=== PATIENT | female | born 2000 | race Caucasian/White ===

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

== ENCOUNTER 2022-06-07 06:46 | Day surgery (SDC) | payer MEDICAID, SELFPAY ==
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
[2022-06-07] VITALS (7 sets, daily range): BP systolic 97–121; BP diastolic 57–90; PULSE 76–97; RESP 16–18; TEMP 36.5–37.1; O2SAT 96–100; BMI 27.7
[2022-06-07 07:22] LABS: Internal QC Validated? YES +Cl - CLEAR BKGD; Pregnancy, Urine Negative Negative
[2022-06-07] MEDS: Lactated Ringers 1,000 ML 15 ML IV (07:26)
[2022-06-07 07:30] LABS: Hematocrit 42.2 % (37-47); Mean Corp Hgb Conc 33.2 g/dL (32-36); Mean Corpuscular Hgb 29.4 pg (27.0-32.0); Mean Corpuscular Volume 88.7 fL (81-99); Mean Platelet Vol. 9.6 fl (6.2-12.0); Platelet Count 413 K/mm3 (150-450); RBC Distribution Width CV 12.3 % (11.6-14.6); RBC Distribution Width SD 40.1 fl (35.1-43.9); Red Blood Count 4.76 M/mm3 (4.2-5.4); White Blood Count 8.7 K/mm3 (4.4-11.0)
--- NOTE | 2022-06-07 08:19 | OP.PCM_ITS ---
Report of Operation Date of Procedure: 06/07/22 Pre-Operative Diagnosis: left labial hypertrophy Post-Operative Diagnosis: same Surgery/Procedure Performed:: left labiaplasty Description of Surgical Findings:: left labia minora larger then right Surgeon: Charley Damico Type of Anesthesia: Local and MAC Special Medications: 2% lidocaine with epinephrine Specimen's removed: left labia minora Drains: none Estimated Blood Loss (mL): 10cc Fluids Replaced: 500 Description of Procedure: Pt was taken to the OR where MAC anesthesia was administered. pt was then placed in the [facility] stirrups. she was then prepped in normal sterile fashion. Sterile drapes placed. At this time 2%lidocaine with epinephrine was injected on left labia minora. At this time left labia was marked. Allis clamps used to grasp tissue. Excess skin was then excised. The tissue will be sent to pathology for evualtion. at this time 3-0 rapide suture used to reapproximate left labia minora edges in a running subcutaneous fashion. Excellent hemostasis appreciated. Lap, needle and instrument count were correct x 2. Vaginal sweep negative. Grafts/Implants Used: none Procedure Start Time: 08:23 Procedure Stop Time: 08:40 Complications none Admit VTE Documentation VTE Present on Admission: Yes VTE Mechan Device Prophylaxis: SCD's VTE Pharm Prophylaxis ordered?: No Reason prophylaxis not ordered:: Procedure Not Indicated
[2022-06-07] MEDS: Lidocaine 2% /Epi 1:100 (20ml) 20 ML VIAL (08:28)
--- NOTE | 2022-06-07 08:30 | TISS_PTH ---
PATIENT: KURT MERCADO LOC: [facility] [place] U[place][id number] AGE/SX: 22/F ROOM: RE06/07/[address]: Dr. Charley Damico, MDDOB: 2000 BED: DIS: 06/07/2022 SPEC #: [id number] RECD: 06/07/22 10:15 STATUS: ADRIANE SAM #: [id number] FRANK: 06/07/22 08:[address]: Charley Damico DEPT: SURGICAL PATHOLOGY RECD BY: Nesha Tran ENTERED: 06/07/22 12:46 SP TYPE: Tissue Bx ASHLEY DR: Dr. Antonella Sanchez MD Tissues: Labial gland, NOS Procedures: Surgery Specimen Level III HEADER OPERATION: Labiaplasty PRE-OP DIAGNOSIS: Symptomatic labial hypertrophy TISSUE SUBMITTED: Left labia minora segment MICROSCOPIC DIAGNOSIS Labia minora segment, labiaplasty: A piece of skin with focal hyperkeratosis. MARTHA:alexia 06/08/2022 MICROSCOPIC DESCRIPTION Slides are reviewed. GROSS DESCRIPTION Received in fixative is one container labeled with the patient's name and designated left labia minora segment. The specimen consists of an elongated piece of payne-brown skin measuring 6.5 x 0.6 x 0.2 cm. No skin lesion is identified. Nurse Charge Rn sections are submitted in one cassette. / MARTHA:alexia 06/07/2022 TC:5 [facility]: [id number]
--- NOTE | 2022-06-07 08:48 | DCINST_ITS ---
Discharge Instructions Diet Discharge Diet: No restrictions Activity May resume sexual activity in: 4-6 weeks Weight Bearing Status: Weight bearing as tolerated Lifting Restrictions: 20 Dressing / Incision Call your doctor if your incision/area has: Increased Pain/ Swelling, Increased Redness, Foul Smelling Discharge and Swelling at the incision site Call your doctor if you observe: Fever of 101 or Higher and Using more than 1 pad per hour Cleanse incision/area with: Soap & Water Follow Up Care Test Results: Test results from this visit will be discussed in further detail at your follow- up appointment, if applicable. Discharge Plan Admission Attending Provider: Charley Damico Primary Care Provider: Antonella Sanchez Discharge Orders/Prescriptions Prescriptions: No Action lamotrigine 25 mg tablet 25 mg PO QHS Label Comments: TAKE 1 TABLET BY MOUTH ONCE DAILY FOR 14 DAYS, THEN INCREASE TO 2 TABLETS DAILY gabapentin 100 mg capsule 100 mg PO QHS Label Comments: TAKE 1-3 CAPSULES BY MOUTH DAILY TOLERATED Referrals / Follow Up: Antonella Sanchez MD [Primary Care Provider] -
== END 2022-06-07 10:47 | disposition home or self-care (01) ==
LOC: SDC 06:48 → AC 06:50
PROVIDERS: PCP Family Medicine; Referring Provider Obstetrics & Gynecology; Visit Provider Obstetrics & Gynecology
PROC: (CPT 56620; principal; 2022-06-07 08:20)
DX: N90.69 Other specified hypertrophy of vulva (principal); F31.81 Bipolar II disorder
CPT/HCPCS: 56800; 88305; 81025; 85027; 88304; J7120; J2405

== ENCOUNTER 2023-12-01 22:57 | Emergency (ER) | payer MEDICAID, SELFPAY ==
[2023-12-01 22:57] VITALS: BP 132/114; PULSE 100; RESP 18; TEMP 36.1; O2SAT 99; BMI 30.4
--- NOTE | 2023-12-01 23:11 | EX.ED.VIS.UR ---
HPI HPI - URI History of Present Illness Chief Complaint: Ear Problem Informant: patient and parent Onset/Context/Timing Onset: Hours (3) Context: Gradual Onset Timing: Continuous Quality: ache Location: L ear Current Severity: Severe Maximum Severity: Severe Narrative Narrative: Patient has had an earache for several hours now. Left ear, with difficulty hearing out of it, no otorrhea, fevers, chills. Pain is radiating into the left side of her face. No nasal congestion, allergies, or recent illness of any other sort. No recent injury. No recent swimming. ROS ROS ED Constitutional Constitutional ED: Denies chills or fever(s) ENT ENT ED: Reports as per HPI and ear pain left; Denies headache(s), nasal congestion, rhinorrhea or sore throat Cardiovascular Cardiovascular: Denies chest pain Respiratory/Chest Respiratory/Chest: Denies dyspnea Gastrointestinal Gastrointestinal: Denies nausea or vomiting Musculoskeletal Musculoskeletal: Denies back pain or neck pain Integumentary Denies rash PFSH PFSH Medical History Wears glasses Former smoker Shortness of breath on exertion Anxiety Depression Home Medications ?Medication ?Instructions ?Recorded ?Last Taken ?Type gabapentin 100 mg capsule 100 mg PO QHS 05/31/22 Unknown History lamotrigine 25 mg tablet 25 mg PO QHS 05/31/22 Unknown History amoxicillin 875 mg-potassium 875 mg PO Q12H #20 TABLETS 12/01/23 Unknown Rx clavulanate 125 mg tablet Allergy/AdvReac Type Severity Reaction Status Date / Time gentamicin Allergy Rash Verified 12/01/23 22:58 Social History Smoking Status: Former smoker EXAM Physical Exam Const Vital Signs: 12/01/23 22:57 Temperature 96.9 F L Temperature Source Temporal Pulse Rate 100 Respiratory Rate 18 Blood Pressure 132/114 H Blood Pressure Mean 120 Pulse Ox 99 Oxygen Delivery Method Room Air Positive well nourished and well developed General Appearance ED: well developed and NAD HEENT Reports moist mucous membranes HEENT Narrative: No sinus tenderness. Right TM and EAC normal. Left EAC unremarkable, otoscopic examination is nontender, the left tympanic membrane is significantly erythematous and bulging with loss of light reflex. No perforation or otorrhea. No significant discomfort with manipulation of the tragus of the pinna. No Rg sign or swelling in the mastoid process no tenderness there. Eyes PERRL and EOMs intact bilaterally Neck no lymphadenopathy and supple Resp normal respiratory effort Neuro oriented x3, CN's II-XII intact bilaterally and gait normal Psych Psych Narrative: Anxious in pain otherwise normal MDM MDM MDM Narrative Medical decision making narrative: Consistent with a left otitis media. Etiology is unclear. Will have her follow-up. Given Naprosyn and tramadol for the pain here as well as starting her on Augmentin. Discharge Plan Triage Chief Complaint: Ear Problem Other Complaint: Lower Extremity Injury ED Provider: Kevin Urias Dx/Rx/DC Orders Clinical Impression: Acute left otitis media Instructions: ED Otitis Media Adult Prescriptions: New amoxicillin-pot clavulanate 875-125 mg tablet 875 mg PO Q12H Qty: 20 0RF No Action lamotrigine 25 mg tablet 25 mg PO QHS Patient Comments: TAKE 1 TABLET BY MOUTH ONCE DAILY FOR 14 DAYS, THEN INCREASE TO 2 TABLETS DAILY gabapentin 100 mg capsule 100 mg PO QHS Patient Comments: TAKE 1-3 CAPSULES BY MOUTH DAILY TOLERATED Primary Care Provider: Antonella Sanchez Referrals: Antonella Sanchez MD [Primary Care Provider] - 1-2 Weeks Print Language: Maldivian Disposition Disposition: Home, Self Care
[2023-12-01 23:17] VITALS: BP 136/86; PULSE 90; RESP 16; TEMP 36.8; O2SAT 99
[2023-12-01] MEDS: Amox/Clavulanate 875 MG Tablet PO (23:20)
[2023-12-01] MEDS: Naproxen 500 MG Tablet PO (23:20)
[2023-12-01] MEDS: traMADol 50 MG Tablet PO (23:20)
== END 2023-12-01 23:58 | disposition home or self-care (01) ==
LOC: ED 23:19
PROVIDERS: Emergency Provider Emergency Medicine; PCP Family Medicine; Visit Provider Emergency Medicine
DX: H66.92 Otitis media, unspecified, left ear (principal); Z87.891 Personal history of nicotine dependence; R51.9 Headache, unspecified
CPT/HCPCS: 99284

== ENCOUNTER 2024-03-12 16:13 | Emergency (ER) | payer MEDICAID, SELFPAY ==
[2024-03-12 16:13] VITALS: BP 123/97; PULSE 106; RESP 14; TEMP 36.6; O2SAT 96; BMI 31.7
--- NOTE | 2024-03-12 16:48 | RAD_ITS ---
INDICATION: dog bite EXAMINATION/TECHNIQUE: X-RAY - LEFT XR Hand Min 3 Views 3 VIEWS COMPARISON: FINDINGS: SOFT TISSUES: There is soft tissue injury with mild subcutaneous gas. No radiopaque foreign body. BONES/JOINTS: No acute fracture or subluxation.. Normal alignment. Preservation of the joint space.. No sclerotic or destructive changes observed. RAD/Hand Min 3 Views IMPRESSION: No acute bony injury. Electronically Signed: Gus Gomez DO at 17:19 EDT ,
--- NOTE | 2024-03-12 16:48 | RAD_ITS ---
INDICATION: dog bite EXAMINATION/TECHNIQUE: X-RAY - LEFT XR Wrist Min 3 Views 3 VIEWS COMPARISON: FINDINGS: SOFT TISSUES: There is soft tissue injury with mild subcutaneous gas. No radiopaque foreign body. BONES/JOINTS: No acute fracture or subluxation.. Normal alignment. Preservation of the joint space.. No sclerotic or destructive changes observed. RAD/Wrist min 3 Views IMPRESSION: No acute bony injury. Electronically Signed: Gus Gomez DO at 17:17 EDT ,
--- NOTE | 2024-03-12 16:50 | EDS_ITS ---
HPI <DEVENDRA Mcintosh - Last Filed: 03/12/24 18:09> History of Present Illness Chief Complaint: Bite Narrative Narrative: Patient is a 23-year-old female with no significant medical history presents to the emergency department after sustaining a dog bite to the left hand. [place] town, she has 3 dogs and is staying with her mother who has 1 dog. Unfortunately when the dog started fighting, she reached her left hand and got bit several times the left hand. Patient has bite gutierrez to the dorsal aspect of the hand as well as to the third fourth and fifth fingers. Patient has full range of motion. Tetanus vaccination unknown, patient states that this incident happened approximately 30 minutes ago. All of the dogs are known to the people. They are all domesticated. According to the patient's, everyone has had their shots. PFSH <DEVENDRA Mcintosh - Last Filed: 03/12/24 18:09> FOR[facility]LY [facility], [facility] Medical History Wears glasses Former smoker Shortness of breath on exertion Anxiety Depression Home Medications ?Medication ?Instructions ?Recorded ?Last Taken ?Type amoxicillin 875 mg-potassium 875 mg PO Q12H #20 TABLETS 12/01/23 Unknown Rx clavulanate 125 mg tablet amoxicillin 875 mg-potassium 1 tab PO BID #20 tabs 03/12/24 Unknown Rx clavulanate 125 mg tablet Allergy/AdvReac Type Severity Reaction Status Date / Time gentamicin Allergy Rash Verified 03/12/24 16:14 Social History Smoking Status: Former smoker ROS <DEVENDRA Mcintosh - Last Filed: 03/12/24 18:09> ROS ED ROS Narrative Constitutional: Negative for fever, chills, weight loss, weakness Eyes: Negative for vision loss, vision change, double vision ENT: Negative for any sore throat, ear pain, congestion Cardiovascular: Negative for any chest pain, tightness, palpitations Respiratory: Negative for any cough, sputum production, hemoptysis, dyspnea, dyspnea on exertion, orthopnea Gastrointestinal: Negative for any abdominal pain, nausea, vomiting, diarrhea, constipation, blood in stool, blood in vomit : Negative for any urinary frequency, dysuria, retention, blood in urine Muscle skeletal: Negative for any neck pain, back pain. Pain to the left hand Neurological: Negative for any headache, syncope, dizziness Skin: Negative for any rashes, itching. Multiple lacerations, puncture wounds to the left hand Psychiatric: Negative for any depression, anxiety, stress, suicidal ideation, homicidal ideation Hematologic: Negative for any excessive bruising, easy bleeding EXAM <DEVENDRA Mcintosh Last Filed: 03/12/24 18:09> Physical Exam Narrative Exam Narrative: Vital signs reviewed. Extremities: Patient does have 2-3 puncture wounds to the dorsal aspect of the hand, 1 on the palm. Patient is able to flex and extend against resistance. +2 radial pulse. There is no obvious deformity, there is no obvious signs of open fracture. Patient has no neurological focal deficits. Neuro: Cranial nerves II through XII intact, no focal neurological deficits. Skin: Clean dry and intact with no rash, purpura, petechiae, vesicles or pustules. Backs/flank: No CVA tenderness, no midline spinal tenderness, no deformity. Psych: Normal mood and affect. No SI, HI or acute psychosis. Const Vital Signs: 03/12/24 16:13 03/12/24 18:13 Temperature 98 F 98 F Temperature Source Temporal Pulse Rate 106 H 98 Respiratory Rate 14 14 Blood Pressure 123/97 H 115/76 Blood Pressure Mean 105 89 Pulse Ox 96 97 Oxygen Delivery Method Room Air <Dr. Raghav Kyle DO - Last Filed: 03/12/24 18:34> Physical Exam Const Vital Signs: 03/12/24 16:13 03/12/24 18:13 Temperature 98 F 98 F Temperature Source Temporal Pulse Rate 106 H 98 Respiratory Rate 14 14 Blood Pressure 123/97 H 115/76 Blood Pressure Mean 105 89 Pulse Ox 96 97 Oxygen Delivery Method Room Air MDM <DEVENDRA Mcintosh - Last Filed: 03/12/24 18:09> MDM Radiography Diagnostic Testing: Clinical Impression(s) from Imaging Studies Hand X-Ray 03/12/24 16:48 IMPRESSION: No acute bony injury. Electronically Signed: Gus Gomez DO at 17:19 EDT Reading Location ID and State: [facility] / [place] Tel [phone], Service support , Wrist X-Ray 03/12/24 16:48 IMPRESSION: No acute bony injury. Electronically Signed: Gus Gomez DO at 17:17 EDT , Treatment and Re-Evaluation :: Differential diagnosis includes however is not limited to: Open fracture, soft tissue injury, foreign body Patient appears generally well, vital signs are stable, patient is nontoxic- appearing. Presenting to the emergency department after a dog bite to the left hand. Patient will require x-rays of left hand, left wrist. All radiologic examinations were read, reviewed by the emergency department attending. From these reads, a plan of care will be put in place. Patient will place her hand in warm soapy water, Tylenol, Augmentin as well as a tetanus vaccination will be given to the patient. Patient's x-ray of the left hand, left wrist were unremarkable. Again patient has 2 laceration of the dorsal aspect the hand, patient does have a 1 cm full- thickness laceration in between the fourth and fifth fingers on the left hand. I was able to anesthetize this, irrigate with normal saline. I will place 2 simple interrupted sutures of 5-0 Ethilon. Patient will have these removed in 7 to 10 days. Patient be started on Augmentin. Patient will return here or go to the urgent care to get her sutures removed. Instructed return for any worsening symptoms. Patient stable for discharge. <Dr. Raghav Kyle DO - Last Filed: 03/12/24 18:34> MDM Radiography Diagnostic Testing: Clinical Impression(s) from Imaging Studies Hand X-Ray 03/12/24 16:48 IMPRESSION: No acute bony injury. Electronically Signed: Gus Gomez DO at 17:19 EDT , Wrist X-Ray 03/12/24 16:48 IMPRESSION: No acute bony injury. Electronically Signed: Gus Gomez DO at 17:17 EDT , Treatment and Re-Evaluation :: Differential diagnosis includes however is not limited to: Open fracture, soft tissue injury, foreign body Patient appears generally well, vital signs are stable, patient is nontoxic- appearing. Presenting to the emergency department after a dog bite to the left hand. Patient will require x-rays of left hand, left wrist. All radiologic examinations were read, reviewed by the emergency department attending. From these reads, a plan of care will be put in place. Patient will place her hand in warm soapy water, Tylenol, Augmentin as well as a tetanus vaccination will be given to the patient. Patient's x-ray of the left hand, left wrist were unremarkable. Again patient has 2 laceration of the dorsal aspect the hand, patient does have a 1 cm full- thickness laceration in between the fourth and fifth fingers on the left hand. I was able to anesthetize this, irrigate with normal saline. I will place 2 simple interrupted sutures of 5-0 Ethilon. Patient will have these removed in 7 to 10 days. Patient be started on Augmentin. Patient will return here or go to the urgent care to get her sutures removed. Instructed return for any worsening symptoms. Patient stable for discharge. I have personally performed a face to face assessment of the patient and have reviewed the OLGA Note. I performed a substantive portion of the visit including all aspects of the following. My narayanan findings include: History is 23-year-old patient received multiple dog bites to the left hand. Her dogs were fighting after being introduced to another dog. Dogs are well cared for and does not appear sick. Tetanus shot is not up-to-date. Exam is multiple puncture wounds over the dorsum of the left hand and wrist. There is a 1 cm laceration in the space between the right ring and middle finger. Neurovascular the patient is intact. There 2 puncture wounds over the surface of the ring finger proximal phalanx. Tendon function appears normal. Medical Decison Making wounds were cleansed and the webspace laceration was sutured by nurse practitioner. My independent interpretation of the plain films of the left wrist and hand is no obvious foreign bodies no fracture patient tetanus was updated and will be placed on Augmentin.] Discharge Plan Triage Chief Complaint: Bite ED Midlevel Provider: Corky Duenas ED Provider: Raghav Kyle Dx/Rx/DC Orders Clinical Impression: Dog bite, Hand pain Instructions: ED Dog Bite Prescriptions: New amoxicillin-pot clavulanate 875-125 mg tablet 1 tab PO BID Qty: 20 0RF No Action amoxicillin-pot clavulanate 875-125 mg tablet 875 mg PO Q12H Qty: 20 0RF Primary Care Provider: Antonella Sanchez Referrals: Antonella Sanchez MD [Primary Care Provider] - Activity Restrictions/Additional Instructions: Have the sutures removed in 7 days. Keep the area clean and dry. Return for any worsening redness. Print Language: Luxembourger Disposition Disposition: Home, Self Care Discharge Date/Time: 03/12/24 18:19
[2024-03-12] MEDS: Acetaminophen 500 MG Tablet 1000 MG PO (16:58)
[2024-03-12] MEDS: Diphth,Pertuss(Acell),Tet Vac 0.5 ML Vial IM (16:58)
[2024-03-12] MEDS: Amox/Clavulanate 875 MG Tablet PO (16:58)
[2024-03-12] MEDS: Lidocaine 1% (20 ml mdv) 20 ML Vial INFILT (17:41)
[2024-03-12 18:13] VITALS: BP 115/76; PULSE 98; RESP 14; TEMP 36.6; O2SAT 97
== END 2024-03-12 18:19 | disposition home or self-care (01) ==
PROVIDERS: Emergency Provider Emergency Medicine; PCP Family Medicine; Referring Provider Emergency Medicine; Visit Provider Emergency Medicine
DX: S61.452A Open bite of left hand, initial encounter (principal); W54.0XXA Bitten by dog, initial encounter; Z87.891 Personal history of nicotine dependence; Z23 Encounter for immunization
CPT/HCPCS: 12001; 73110; 73130; 90471; 90715; 99283

== ENCOUNTER 2024-08-10 20:19 | Emergency (ER) | payer SELFPAY ==
[2024-08-10 20:20] VITALS: BP 130/90; PULSE 100; RESP 18; TEMP 36.8; O2SAT 99; BMI 32.7
[2024-08-10] MEDS: Ondansetron ODT 4 MG Tablet PO (21:37)
[2024-08-10] MEDS: Lidocaine 1% (20 ml mdv) 20 ML Vial 10 ML INFILT (21:38)
[2024-08-10] MEDS: HYDROcodone Bitartrate/Apap 5/325 Tablet PO (21:38)
--- NOTE | 2024-08-10 21:50 | RAD_ITS ---
PROCEDURE: Right ankle radiographs REASON FOR EXAM: Pain, penetrating injury TECHNIQUE: Three views of the right ankle COMPARISON: None FINDINGS: See impression RAD/Ankle min 3 Views IMPRESSION: Negative for acute fracture or malalignment. No significant soft tissue emphys robert or radiopaque foreign body. Medial soft tissue swelling. Reading Location: [facility]
--- NOTE | 2024-08-10 22:01 | EX.ED.DYSGE1 ---
HPI History of Present Illness Chief Complaint: Bite Narrative Narrative: Patient is a 24-year-old female with past medical history anxiety, depression who presented to the emergency department with a chief complaint of dog bite to the left ankle. Patient states that her dogs got in a fight she tried to separate them when she was bitten the ankle. States that her tetanus shot was updated around March 2024. [facility] Medical History Wears glasses Former smoker Shortness of breath on exertion Anxiety Depression Home Medications ?Medication ?Instructions ?Recorded ?Last Taken ?Type amoxicillin 875 mg-potassium 875 mg PO Q12H #20 TABLETS 12/01/23 Unknown Rx clavulanate 125 mg tablet amoxicillin 875 mg-potassium 1 tab PO BID #20 tabs 03/12/24 Unknown Rx clavulanate 125 mg tablet amoxicillin 875 mg-potassium 1 tab PO Q12H 7 days #14 tabs 08/10/24 Unknown Rx clavulanate 125 mg tablet Allergy/AdvReac Type Severity Reaction Status Date / Time gentamicin Allergy Rash Verified 08/10/24 20:23 Social History Smoking Status: Former smoker ROS ROS ED ROS Narrative Constitutional: Denies fevers, chills, headaches Neurological: Denies numbness, weakness, tingling Musculoskeletal: Complains of dog bite to right ankle as noted above Skin: Complains a cut to the ankle was from dog bites EXAM Physical Exam Narrative Exam Narrative: General: Patient lying in bed rest comfortably did not appear to be in acute distress Head: Atraumatic, normocephalic Eyes: PERRL bilaterally, EOMI bilateral, no conjunctival injection noted Neck: Soft, supple, trachea midline Extremities: +5/5 strength noted in the bilateral upper and lower extremities, DP pulses +2/4 in the bilateral lower extremities, no pedal edema no exam Neurological: Patient follow commands and that she was at [facility] the year is 2024 sensation grossly tact the bilateral lower extremities Skin: 2 and half centimeter laceration over the medial right ankle no active bleeding noted, puncture wound noted to the anterior aspect of the right ankle, puncture wound below the 2 half centimeter laceration over right ankle as well Const Vital Signs: 08/10/24 20:20 08/10/24 23:29 Temperature 98.3 F 98.8 F Temperature Source Temporal Pulse Rate 100 60 Respiratory Rate 18 16 Blood Pressure 130/90 H 118/70 Blood Pressure Mean 103 86 Pulse Ox 99 97 Oxygen Delivery Method Room Air MDM MDM MDM Narrative Medical decision making narrative: Patient is a 24-year-old female who presents to the emerged part with chief complaint of dog bite to the ankle. On the differential diagnose includes but not limited to dog bite, retained foreign body. Once the x-rays obtained reviewed she will be reevaluated. Patient does not need a tetanus shot update as she states this is updated 8 in March 2024. She states that these are her dogs and their shots are up-to-date Patient's ankle x-ray reviewed by myself and by radiology showed no acute fracture or malalignment no radiopaque foreign body medial soft tissue swelling noted. Patient had a laceration repaired here in the emergency department this was closely approximated with 2 sutures. She was advised to do not soak this keep out an eye for signs infection such as purulent drainage or surrounding redness, fevers severe ankle pain or any other concerns. She will be given her first dose of Augmentin here in the emergency department. She is advised to have the sutures removed in approximately 7 to 10 days. By her primary care physician. She is encouraged to rotate Tylenol ibuprofen [id number] for pain control. She is agreeable this plan as well as family bedside all question concerns answered she discharged home in stable condition. Procedure note Procedure name: Laceration repair Indication: Reduce risk of infection Location: Right 2 and half centimeter simple linear laceration near right medial malleolus Preprocedure diagnosis: Laceration Postprocedure diagnosis: Repaired laceration Informed consent was obtained prior to procedure started. Procedure: The appropriate timeout was taken. The area was prepped and draped in usual sterile fashion. Local anesthesia was achieved using 3 cc of lidocaine 1% without epinephrine. Wound was copiously irrigated. 2 4-0 Ethilon interrupted sutures were placed. Estimated blood loss was less than 0.5 mL. Dressing was applied to the area and anticipatory guidance, as well as standard postprocedure care was explained. Return precautions are given. Patient tolerated procedure well without any complications. Follow-up visit for suture removal and evaluation of laceration. Radiography Diagnostic Testing: Clinical Impression(s) from Imaging Studies Ankle X-Ray 08/10/24 21:50 IMPRESSION: Negative for acute fracture or malalignment. No significant soft tissue emphysema or radiopaque foreign body. Medial soft tissue swelling. Reading Location: [facility] Discharge Plan Triage Chief Complaint: Bite ED Provider: Kelvin Niño Dx/Rx/DC Orders Clinical Impression: Dog bite, Laceration of ankle Prescriptions: New amoxicillin-pot clavulanate 875-125 mg tablet 1 tab PO Q12H 7 Days Qty: 14 0RF No Action amoxicillin-pot clavulanate 875-125 mg tablet 875 mg PO Q12H Qty: 20 0RF amoxicillin-pot clavulanate 875-125 mg tablet 1 tab PO BID Qty: 20 0RF Primary Care Provider: Antonella Sanchez Referrals: Antonella Sanchez MD [Primary Care Provider] - Activity Restrictions/Additional Instructions: Do not soak the sutures have the sutures removed in approximately 7 to 10 days. Take the antibiotics as prescribed. You are given your first dose here. Start the antibiotics tomorrow morning when you pick them up from the pharmacy. Watch out for signs infection such as surrounding redness purulent discharge from the wound. Return with any other concerns. Follow-up your doctor in the outpatient setting. Print Language: Amharic Disposition Disposition: Home, Self Care
[2024-08-10 23:29] VITALS: BP 118/70; PULSE 60; RESP 16; TEMP 37.1; O2SAT 97
[2024-08-10] MEDS: Amox/Clavulanate 875 MG Tablet PO (23:49)
== END 2024-08-10 23:55 | disposition home or self-care (01) ==
PROVIDERS: Emergency Provider Emergency Medicine; PCP Family Medicine; Visit Provider Emergency Medicine
DX: S91.052A Open bite, left ankle, initial encounter (principal); F41.9 Anxiety disorder, unspecified; Z87.891 Personal history of nicotine dependence; F32.A Depression, unspecified; W54.0XXA Bitten by dog, initial encounter
CPT/HCPCS: 12001; 73610; 99284